=== PATIENT | female | born 1970 | race African-American/Black ===

== ENCOUNTER 2018-03-26 07:59 | Outpatient (CLI) | payer BC ==
--- NOTE | 2018-03-26 10:13 | MRI ---
NONCONTRAST MRI CERVICAL SPINE: Date: 03/26/18 HISTORY: Cervical radiculopathy. Patient having bilateral arm and hand tingling for months. COMPARISON: None available. FINDINGS: Visualized base of brain demonstrates normal MRI appearance. The cervicomedullary junction is normal in appearance. Normal signal intensity is demonstrated throughout the bone marrow. Spinal cord is normal in contour and signal intensity. There is no significant intradural or extradural defect at any level of the cervical spine. Central s sri canal and neural foramina are widely patent at all levels. IMPRESSION: Widely patent central spinal canal and neural foramen at all levels without significant intradural or extradural defect identified. POS: [facility]
== END 2018-03-26 08:00 | disposition home or self-care (01) ==
LOC: SCSMRI 07:59
PROVIDERS: ATTEND Orthopaedic Surgery Hand Surgery
DX: M54.12 Radiculopathy, cervical region (principal)
CPT/HCPCS: 72141

== ENCOUNTER 2018-06-26 10:31 | Day surgery (SDC) | payer BC ==
[2018-06-25 13:06] VITALS: BMI 42.5
[2018-06-26] MEDS ORDERED: Betamet Acet/Betamet Na Ph 30 MG/5 ML VIAL ONE (13:38)
[2018-06-26] MEDS ORDERED: Bacitracin Zinc Ointment 30 gm TUBE ONE (13:38)
[2018-06-26] MEDS ORDERED: Bupivacaine PF 0.5% 30 ML VIAL ONE (13:38)
[2018-06-26] MEDS ORDERED: Midazolam HCl 2 mg/2 ml Vial ONE (13:40)
[2018-06-26] MEDS ORDERED: Fentanyl 100 MCG/2 ML VIAL ONE (13:40)
[2018-06-26] MEDS ORDERED: Ketorolac Tromethamine 30 MG/ML VIAL ONE ×2 (13:52→15:13)
[2018-06-26] MEDS ORDERED: PROPOFOL 200 MG/20 ML VIAL ONE (13:52)
[2018-06-26] MEDS ORDERED: Lidocaine 1% PF 5 ML VIAL ONE (13:52)
[2018-06-26] MEDS ORDERED: PHENYLEPHRINE-NS 100 MCG/ML 10 ML SYRINGE ONE (13:52)
[2018-06-26] MEDS ORDERED: Ondansetron PF 4 MG/2 ML Vial ONE (13:52)
--- NOTE | 2018-06-26 20:53 | OP ---
DATE OF PROCEDURE: 06/26/2018 PREOPERATIVE DIAGNOSIS: Right carpal tunnel syndrome. POSTOPERATIVE DIAGNOSIS: Right carpal tunnel syndrome. FINDINGS: 1. Very tight transverse carpal ligament with early flattening and stiffening of the median nerve in the center and proximal 3rd of the carpal canal. 2. Old scar formation to allow for recurrence of the tight transverse carpal ligament carpal tunnel syndrome. PROCEDURE PERFORMED: 1. Carpal tunnel release, right wrist. 2. Right wrist carpal tunnel steroid injection with 3 mL of Celestone, drip technique. SPECIMEN REMOVED: None. BLOOD LOSS: Less than 5 mL. TOURNIQUET TIME: 15 minutes. ANESTHESIA: General with augmentation using 50 mL of 0.5% Marcaine block proximal to the volar wrist flexion crease. DESCRIPTION OF PROCEDURE: After successful anesthesia as listed above, the limb was prepped and draped. Time-out was done appropriately. We then exsanguinated the limb, inflated tourniquet to 250 mmHg pressure and then we had already drawn a new incision based on the old. We carried the incision through the skin and subcutaneous tissue to the level of the volar wrist flexion crease and we saw immediately transcarpal ligament reformed, it was very tight. The palmaris longus was involved in marked amount of irritation. We then retracted gently, used appropriate retraction and visualized the transcarpal ligament began to releasing it with a Onaway blade from the midportion distally where it was most tight and made sure the internal branches were free. We then did the same for the midportion proximally using a combination of Onaway blade, tenotomy scissors. A small amount of retinaculum was resected approximately 5 mm on either side deep. We irrigated the area and placed the Celestone in drip technique, closed the wound with interrupted 4-0 nylon simple mattress pattern, and the patient left the operating room without evidence of anesthetic or operative complication. Job ID: [id number]
== END 2018-06-26 17:05 | disposition home or self-care (01) ==
LOC: SDC 10:31
PROVIDERS: ATTEND Orthopaedic Surgery Hand Surgery
PROC: 01N50ZZ Release Median Nerve, Open Approach (ICD-10-PCS; principal; 2018-06-26)
DX: G56.03 Carpal tunnel syndrome, bilateral upper limbs (principal); M19.90 Unspecified osteoarthritis, unspecified site; E11.9 Type 2 diabetes mellitus without complications; I25.2 Old myocardial infarction; E78.5 Hyperlipidemia, unspecified; I25.10 Atherosclerotic heart disease of native coronary artery without angina pectoris; I11.9 Hypertensive heart disease without heart failure; M20.021 Boutonniere deformity of right finger(s); Z79.2 Long term (current) use of antibiotics; Z79.4 Long term (current) use of insulin; Z79.899 Other long term (current) drug therapy
CPT/HCPCS: 36416; J0690; J0702; J1885; J2001; J2250; J2405; J2704; J3010; S0020

== ENCOUNTER 2019-02-15 05:50 | Day surgery (SDC) | payer BC ==
[2019-02-13 14:13] LABS: Bilirubin Negative (Negative); Blood, Urine Negative (Negative); Clarity Clear (Clear); Glucose, Urine (Dipstick) Greater than 1000 mg/dL (Negative); Leukocyte Negative Leu/uL (Negative); Mucous/LPF Rare LPF (<2+); Nitrite Negative (Negative); Protein, Urine (Dipstick) 30 mg/dL (Neg-Trace); RBC/HPF 0-3 HPF (0-3); Squamous Epithelial 0-3 HPF (0-3); Urobilinogen Normal mg/dL (Less than 2); WBC/HPF 0-3 HPF (0-3)
[2019-02-13 14:14] LABS: Bacteria/HPF 1+ HPF (None Seen)
[2019-02-13 14:58] LABS: #Eosinphils 0.1 thou/uL (0.0-0.7); #Lymphocytes 2.7 thou/uL (1.20-3.40); #Monocytes 0.4 thou/uL (0.11-0.59); %Basophils 0.4 % (0.0-1.0); %Eosinophils 1.3 % (0.0-10.0); %Lymphocytes 32.1 % (21.0-51.0); %Monocytes 5.1 % (0.0-10.0); %Neutrophils 61.2 % (42.0-75.0); Hemoglobin 12.4 g/dL (12.0-16.0); Mean Corpuscular HGB CONC 31.6 g/dL (32.0-36.0); Mean Corpuscular Hemoglobin 26.7 pg (27.0-31.0); Mean Corpuscular Volume 84.4 fL (78.0-98.0); Mean Platelet Volume 8.9 fL (7.4-10.4); Platelet Count 324 thou/uL (130-400); RBC Distribution Width 13.3 % (11.5-14.5); Red Blood Cell (RBC) Count 4.63 mill/uL (4.20-5.40); White Blood Cell (WBC) Count 8.2 thou/uL (4.8-10.8)
[2019-02-15] MEDS ORDERED: Fentanyl 100 MCG/2 ML VIAL ONE (06:20)
[2019-02-15] MEDS ORDERED: Bupivacaine PF 0.5% 30 ML VIAL ONE (06:24)
[2019-02-15] MEDS ORDERED: Bacitracin Zinc Ointment 30 gm TUBE ONE (06:24)
[2019-02-15] MEDS ORDERED: Betamet Acet/Betamet Na Ph 30 MG/5 ML VIAL ONE (06:24)
--- NOTE | 2019-02-15 09:26 | OP ---
DATE OF PROCEDURE: 02/15/2019 PREOPERATIVE DIAGNOSIS: Left carpal tunnel syndrome. POSTOPERATIVE DIAGNOSIS: Left carpal tunnel syndrome. FINDINGS: 1. Very tight transverse carpal ligament, reformed after greater than 10 years ago previous carpal tunnel release. 2. Stippling of the median nerve without complete flattening. PROCEDURE PERFORMED: Left carpal tunnel release. ANESTHESIA: General with LMA technique, augmented by 10 mL of 0.5% Marcaine given prior to incision, denny-incisional technique. TOURNIQUET TIME: 15 minutes. ESTIMATED BLOOD LOSS: 5 mL. DESCRIPTION OF PROCEDURE: After successful anesthesia listed above, the limb was prepped and draped. I gave Marcaine block after outlining a 2.5 cm incision in line with the ring finger medial and lateral as far distal as Javier's cardinal line proximal to 2 mm distal to the volar wrist flexion crease and approximating the previous scar as well. We exsanguinated the limb, inflated the tourniquet to 250 mmHg pressure, and then dissected down with a sharp knife to the transverse carpal ligament. It was reformed and thickened. We opened it in the midportion with [place] blade under direct visualization. We then progressively distracted the wound and released the proximal 1 cm under direct visualization using combination of [place] blade and tenotomy scissors. The same technique was used to elevate the skin and released the portion from the volar wrist flexion crease proximally under direct visualization. It was here that we saw the stippling, possible early flattening of the nerve, but no true hourglass formation. We then placed Celestone to wound 5 mL, released the tourniquet, obtained hemostasis, and then closed the wound with interrupted 4-0 nylon interrupted mattress pattern. She left the operating room without evidence of anesthetic or operative complication. Job ID: [id number]
[2019-02-15] MEDS ORDERED: PROPOFOL 200 MG/20 ML VIAL ONE (10:38)
[2019-02-15] MEDS ORDERED: Lidocaine 1% PF 5 ML VIAL ONE (10:38)
[2019-02-15] MEDS ORDERED: Dexamethasone 20 MG/5 ML VIAL ONE (10:38)
[2019-02-15] MEDS ORDERED: Ondansetron PF 4 MG/2 ML Vial ONE (10:38)
== END 2019-02-15 10:12 | disposition home or self-care (01) ==
LOC: SDC 05:50
PROVIDERS: ATTEND Orthopaedic Surgery Hand Surgery
PROC: 01N50ZZ Release Median Nerve, Open Approach (ICD-10-PCS; principal; 2019-02-15)
DX: G56.02 Carpal tunnel syndrome, left upper limb (principal); I11.9 Hypertensive heart disease without heart failure; E11.59 Type 2 diabetes mellitus with other circulatory complications; E78.5 Hyperlipidemia, unspecified; I25.10 Atherosclerotic heart disease of native coronary artery without angina pectoris; I25.2 Old myocardial infarction; M19.90 Unspecified osteoarthritis, unspecified site; Z79.4 Long term (current) use of insulin; Z79.82 Long term (current) use of aspirin; Z79.899 Other long term (current) drug therapy
CPT/HCPCS: 81003; 81015; 85025; J0690; J0702; J1100; J2001; J2405; J2704; J3010; S0020

== ENCOUNTER 2020-08-03 09:17 | Outpatient (CLI) | payer BC ==
[2020-08-03 17:50] LABS: SARS-CoV-2 PCR by NAA Not Detected (NotDetected)
== END 2020-08-03 09:18 | disposition home or self-care (01) ==
LOC: LABBT 09:17
PROVIDERS: ATTEND Internal Medicine
DX: Z01.812 Encounter for preprocedural laboratory examination (principal); K21.9 Gastro-esophageal reflux disease without esophagitis; R14.0 Abdominal distension (gaseous); Z20.822 Contact with and (suspected) exposure to COVID-19
CPT/HCPCS: 87635; U0003; U0005

== ENCOUNTER 2020-08-04 07:33 | Day surgery (SDC) | payer BC ==
[2020-08-03 08:19] VITALS: BMI 45.4
[2020-08-04] MEDS ORDERED: Insulin Regular 300 UNITS/3 ML VIAL ONE (09:05)
[2020-08-04] MEDS ORDERED: PROPOFOL 200 MG/20 ML VIAL ONE (09:27)
== END 2020-08-04 10:45 | disposition home or self-care (01) ==
LOC: SDC 07:33
PROVIDERS: ATTEND Internal Medicine
PROC: 0D758ZZ Dilation of Esophagus, Via Natural or Artificial Opening Endoscopic (ICD-10-PCS; principal; 2020-08-04)
DX: K21.9 Gastro-esophageal reflux disease without esophagitis (principal); I10 Essential (primary) hypertension; I25.2 Old myocardial infarction; E78.5 Hyperlipidemia, unspecified; E10.9 Type 1 diabetes mellitus without complications; Z79.82 Long term (current) use of aspirin; Z79.84 Long term (current) use of oral hypoglycemic drugs; Z79.899 Other long term (current) drug therapy
CPT/HCPCS: 36416; J1815; J2704

== ENCOUNTER 2022-09-15 15:26 | Outpatient (CLI) | payer BC | END 2022-09-15 15:27 | disposition home or self-care (01) | LOC: SCSRAD 15:26 | PROVIDERS: ATTEND Nurse Practitioner Family | DX: M25.512 Pain in left shoulder (principal) ==